=== PATIENT | female | born 1970 | race Caucasian/White ===

== ENCOUNTER 2019-04-20 08:36 | Inpatient (IN) | payer OTHER ==
[~2019-04-20] VITALS: Ht 157.5 cm; Wt 90.1 kg
[2019-04-20 08:45] VITALS: Ht 157.5 cm; Wt 90.1 kg
[2019-04-20 09:24] LABS: BASOPHIL % 0.3 % (0-2); PLATELET COUNT 321 x10^3mcL (130-400); RED CELL DISTRIBUTION WIDTH 12.6 % (11.5-14.5)
[2019-04-20 09:28] LABS: CARBON DIOXIDE 24.6 mmol/L (21-32); CHLORIDE SERUM 99 mmol/L (98-107); CREATININE SERUM 0.7 mg/dL (0.6-1.0); GFR1 > 60 mL/min; GLUCOSE SERUM 139 mg/dL (74-106); POTASSIUM SERUM 3.8 mmol/L (3.5-5.1); SODIUM SERUM 135 mmol/L (136-145)
[2019-04-20 09:34] LABS: ALBUMIN 3.8 g/dL (3.4-5.0); ALKALINE PHOSPHATASE 46 U/L (46-116); ALT/SGPT 29 U/L (14-59); AST/SGOT 12 U/L (15-37); BILIRUBIN TOTAL 0.4 mg/dL (0.20-1.00); LIPASE 123 IU/L (73-393); TOTAL PROTEIN, SERUM 7.8 g/dL (6.4-8.2)
[2019-04-20] MEDS ORDERED: MULTIVITAMIN1 SGL PO (14:17)
[2019-04-20] MEDS ORDERED: BLISOVI 24 FE1 EACH PO (14:17)
[2019-04-20] MEDS ORDERED: FISH OIL 1,0001 EACH PO (14:18)
[2019-04-20 20:52] VITALS: BP 115/54
[2019-04-21 05:54] VITALS: BP 105/51
[2019-04-21 08:25] VITALS: BP 127/64
[2019-04-21] MEDS ORDERED: ZOF4 PO (09:27)
[2019-04-21] MEDS ORDERED: ULTRAM50 MG PO (09:27)
[2019-04-21 13:58] VITALS: BP 127/64
== END 2019-04-21 15:15 | disposition home or self-care (01) | DRG 354 ==
LOC: ED 08:36 → MU 13:39
PROVIDERS: Emergency Medicine; Surgery; ADMIT Hospitalist
PROC: 0WQF4ZZ Repair Abdominal Wall, Percutaneous Endoscopic Approach (ICD-10-PCS; 2019-04-20)
PROC: 0FT44ZZ Resection of Gallbladder, Percutaneous Endoscopic Approach (ICD-10-PCS; principal; 2019-04-20 17:30)
DX: K42.9 Umbilical hernia without obstruction or gangrene (principal); K80.12 Calculus of gallbladder with acute and chronic cholecystitis without obstruction; I10 Essential (primary) hypertension; E66.9 Obesity, unspecified; Z88.6 Allergy status to analgesic agent; Z88.5 Allergy status to narcotic agent
CPT/HCPCS: C9113; G0378; J0330; J0694; J1170; J2250; J2270; J2405; J2543; J2704; J2710; J3010; J3480; J3490; J7030; J7050; J7120; Q0092